=== PATIENT | male | born 1960 | race Caucasian/White ===

== ENCOUNTER 2019-02-08 16:32 | Observation (INO) | payer OTHER ==
[~2019-02-08] VITALS: Ht 182.9 cm; Wt 172.3 kg
--- NOTE | ~2019-02-08 | HEMODYNAMI ---
PATIENT:LATOYA GUERRERO MEDICAL RECORD: [id number] : 60 LOCATION:[facility].2129 ADMISSION DATE: 02/08/19 Generatedon:02/09/201915:56 Patient name: LATOYA GUERRERO Patient #: [id number] SSN: : 1960 Date of study: 02/09/2019 Page: Of Hemodynamic Procedure Report Patient Data Patient Demographics Procedure consent was obtained First Name: LATOYA Gender: Male Last Name: CESAR : 1960 [facility] Initial: PERFECTO Age: 58 year(s) Patient #: [id number] Race: Unknown Additional ID: [id number] Contact details Address: [address] [place] [address] State: [place] City: [facility] Zip code: [address] Admission Admission Data Admission Date: 02/08/2019 Admission Time: 18:46 Room #: D2129 Procedure Procedure Types Cath Procedure Diagnostic Procedure LHC LHC w/Coronaries Procedure Description Procedure Date Procedure Date: 02/09/2019 Procedure Start Time: 15:41 Procedure End Time: 15:53 Procedure Staff Name Function Martínez Jeong MD Performing Physician Jamel Stratton RN Nurse Flores Tobin RT Scrub Lorenzo Pappas RT Monitor America Ragsdale RN Court Messenger Procedure Data Cath Procedure Fluoroscopy Diagnostic fluoroscopy Total fluoroscopy Time: 4.9 time: 4.9 min min Diagnostic fluoroscopy Total fluoroscopy dose: dose: 1217 mGy 1217 mGy Contrast Material Contrast Material Type Amount (ml) Isovue 300 75 Entry Location Entry Primary Successful Side Size Upsize Upsize Entry Closure Nj ccessful Closure Location (Fr) 1 (Fr) 2 (Fr) Remarks Device Remarks Femoral Right 6 Fr Mechanical artery Short Compression Estimated blood loss: 10 ml Diagnostic catheters Device Type Used For End Catheter Placement DIAGNOSTIC Dover 110cm 5 Procedure Fr catheter ([id number]) Procedure Complications No complications Procedure Medications Medication Administration Route Dosage Oxygen etCO2 Nasal cannula 2 l/min Lidocaine 2% added to field 20 Heparin Flush Bag added to field 2 bags (1000units/500ml NS) 0.9% NaCl I.V. 100 ml/hr Radial Cocktail I.A. 1 syringe (Verapomil 2mg/Nitro 400mcg/Heparin 1500units) Versed I.V. 2 mg Fentanyl I.V. 100 mcg Versed I.V. 2 mg Fentanyl I.V. 100 mcg Hemodynamics Rest Heart Rate: 79 (bpm) Pressure Samples Time Site Value (mmHg) Purpose Heart Use Rate(bpm) 15:43 LV 110/4,5 Snapshot 88 Gradients Valve Time Site Site Mean SEP/DFP Peak To Heart Use 1 2 (mmHg) (sec/min) Peak Rate (mmHg) (bpm) Aortic 15:44 LV AO 76 Snapshots Pre Cath Intra NCS Post Cath Vital Signs Time Heart Resp SPO2 etCO2 NIBP (mmHg) Rhythm Pain Sedation Rate (ipm) (%) (mmHg) Status Level (bpm) 15:14:37 81 22 96 27 119/68(98) NSR 0 (11) 10(A) , No pain 15:19:54 80 16 93 34.5 110/68(100) NSR 0 (11) 10(A) , No pain 15:24:14 80 18 93 35.9 115/69(95) NSR 0 (11) 10(A) , No pain 15:28:36 78 18 94 34.4 114/68(86) NSR 0 (11) 10(A) , No pain 15:32:58 79 17 93 37.5 121/70(95) NSR 0 (11) 10(A) , No pain 15:37:23 79 18 93 38.2 118/72(99) NSR 0 (11) 10(A) , No pain 15:41:49 86 16 95 15.7 118/68(88) NSR 0 (11) 9(A) , No pain 15:46:09 89 18 94 24.7 107/64(87) NSR 0 (11) 9(A) , No pain 15:50:29 80 17 93 37.5 116/68(88) NSR 0 (11) 9(A) , No pain 15:54:43 81 19 94 32.9 118/75(97) NSR 0 (11) 10(A) , No pain Medications Time Medication Route Dose Verified Delivered Reason Notes Effectiveness by by 15:19:50 Oxygen etCO2 2 l/min Martínez Mccullough used for Nasal Davin Viral procedure cannula RN 15:19:58 Lidocaine 2% added 20ml Martínez Soliz for local to vial [facility] anesthetic field MD HEART 15:20:32 Heparin Flush added 2 bags Martínez Soliz used for Bag to [facility] procedure (1000units/500ml field MD HEART NS) 15:20:43 0.9% NaCl I.V. 100 Martínez Soliz Per ml/hr [facility] physician MD HEART 15:39:08 Fentanyl I.V. 100 mcg Martínez Cross for sedation [facility] Ragsdale RN, MD 15:39:54 Versed I.V. 2 mg Martínez Cross for sedation [facility] Rags[facility] RN, MD 15:42:31 Radial Cocktail I.A. 1 Martínez Soliz for (Verapomil syringe [facility] vasodilation 2mg/Nitro MD HEART 400mcg/Heparin 1500units) 15:44:37 Versed I.V. 2 mg Martínez Cross for sedation [facility] Justin Ragsdale RN, MD 15:44:42 Fentanyl I.V. 100 mcg Martínez Cross for sedation [facility] Ragsdale RN, MD Procedure Log Time Note 14:45:35 Time tracking: Regular hours (M-F 7:00 - 5:00) 14:45:39 Plan of Care:Hemodynamics will remain stable., Cardiac rhythm will remain stable., Comfort level will be maintained., Respiratory function will remain adequate., Patient/ family verbilizes understanding of procedure., Procedure tolerated without complication., Recovers from procedure without complications.. 14:50:10 Jamel Stratton RN sent for patient. Start room use. 15:05:12 Patient received from PCU to CCL 2 Alert and oriented. Tansferred to table in Supine position. 15:13:18 Warm blankets applied, and rony hugger turned on for patient comfort. 15:13:18 Correct patient and procedure confirmed by team. 15:13:19 Signed procedure consent form obtained from patient. 15:13:20 ECG and BP/O2 sat monitors applied to patient. 15:13:22 Vital chart was started 15:13:22 Full Disclosure recording started 15:13:26 Rhythm: sinus rhythm 15:18:57 Baseline sample Acquired. 15:19:50 Oxygen 2 l/min etCO2 Nasal cannula was administered by Jamel Stratton RN; used for procedure; 15:19:58 Lidocaine 2% 20ml vial added to field was administered by Martínez Jeong MD; for local anesthetic; 15:20:32 Heparin Flush Bag (1000units/500ml NS) 2 bags added to field was administered by Martínez Jeong MD; used for procedure; 15:20:43 0.9% NaCl 100 ml/hr I.V. was administered by Martínez Jeong MD; Per physician; 15:21:33 H&P Date Dictated: 02/09/2019 Within 30 days and on chart.. 15:21:34 Pre-procedure instructions explained to patient. 15:21:34 Pre-op teaching completed and patient verbalized understanding. 15:21:39 Family in patients room. 15:21:40 Patient NPO since Midnight. 15:21:43 Is the patient allergic to Iodine/contrast media? No. 15:21:59 Is patient on blood thinner?No 15:22:00 Patient diabetic? No. 15:22:01 If diabetic: On Metformin? Yes 15:22:04 If on Metformin: Last Dose? 02/07/2019 15:22:08 Previous problem with sedation/anesthesia? No ? 15:22:09 Snore? Yes 15:22:10 Sleep apnea? Yes 15:22:11 Deviated septum? No 15:22:12 Opens mouth fully? Yes 15:22:15 Sticks out tongue? Yes 15:22:21 Airway obstruction? No ? 15:22:32 Dentures? Yes IN 15:22:47 Pre procedure: right dorsailis pedis pulse 1+ Palpable, but thready & weak; easily obliterated 15:22:51 Modified Manuel's test Ulnar < 7 seconds 15:22:53 Patient pain scale 0/10 ?. 15:22:58 IV patent on arrival in left forearm with 0.9% NaCl at [facility]. 15:23:00 Lab results completed and on chart. 15:23:03 Right Radial & Right Groin area was prepped with chlora-prep and draped in sterile fashion 15:23:04 Alarms reviewed by Roge N. 15:23:05 Sharps counted by scrub and verified by RRichieNRichie 15:38:26 --------ALL STOP TIME OUT------ 15:38:27 Final Timeout: patient, procedure, and site verified with staff and physician. All members of the team are in agreement. 15:38:29 Right Radial & Right Groin site verified by team. 15:38:32 Maximum allowable Isovue 300 dose 300ml. Physician notified. (300ml for normal creatinines. For patients with creatinine of 1.7 or higher multiply weight(kg) x 5 divided by creatinine.) 15:38:36 Fire Safety Assessment: A--An alcohol-based skin anteseptic being used preoperatively., C--Open oxygen or nitrous oxide is being used., D--An ESU, laser, or fiber-optic light is being used. 15:38:39 Physical assessment completed. ASA score P 2 - A patient with mild systemic disease as per Martínez Jeong MD. 15:38:42 Sedation plan: IV Moderate Sedation Medication:Versed, Fentanyl 15:39:08 Fentanyl 100 mcg I.V. was administered by America Ragsdale RN; for sedation; 15:39:54 Versed 2 mg I.V. was administered by America Ragsdale RN; for sedation; 15:40:47 Use device set Radial Dx or PCI 15:40:48 Tegaderm 4 x 4 (1626W) opened to sterile field. 15:40:49 ACIST Manifold (36732) opened to sterile field. 15:40:50 ACIST Hand Control (67310) opened to sterile field. 15:40:51 ACIST Syringe (67396) opened to sterile field. 15:40:51 Medline Cath Pack ([id number]) opened to sterile field. 15:40:52 Bag Decanter () opened to sterile field. 15:40:52 DIAGNOSTIC WIRE .035 260cm J wire (833101) opened to sterile field. 15:40:53 MBrace Wrist Support ([id number]) opened to sterile field. 15:40:54 SHEATH 6FR Slender (02-9950) opened to sterile field. 15:40:57 Procedure started. 15:41:02 Local anesthetic to right radial artery with Lidocaine 2% by Martínez Jeong MD.INITIAL ACCESS ONLY 15:41:55 A 6 Fr Short sheath was inserted into the Right Femoral artery 15:42:02 A DIAGNOSTIC Dover 110cm 5 Fr catheter (110583) was advanced over the wire and used for Procedure. 15:42:31 Radial Cocktail (Verapomil 2mg/Nitro 400mcg/Heparin 1500units) 1 syringe I.A. was administered by Martínez Jeong MD; for vasodilation; 15:43:58 LV angiography performed. 15:43:59 LV gram done using HONEYCUTT 15:44:04 EF : 55 % 15:44:06 LV hemodynamics recorded. 15:44:09 Injector settings: Ml/sec: 5, Volume: 15, 15:44:28 RCA angiography performed. 15:44:37 Versed 2 mg I.V. was administered by America Ragsdale RN; for sedation; 15:44:42 Fentanyl 100 mcg I.V. was administered by America Ragsdale RN; for sedation; 15:46:19 Catheter exchanged over wire. 15:46:[address] [facility]OWN PCI 15:46:40 GUIDE 6FR EBU 3.5 catheter ([id number]) opened to sterile field. 15:47:00 6 Fr EBU 3.5 guide catheter was inserted over the wire 15:48:13 Guide Catheter removed. unable to cannulate vessel. 15:48:16 GUIDE 6FR EBU 4.0 guide catheter ([id number]) opened to sterile field. 15:48:22 6 Fr EBU 4 guide catheter was inserted over the wire 15:51:08 LCA angiography performed. 15:51:26 Catheter removed. 15:51:45 TR BAND Large ([id number]) opened to sterile field. 15:52:08 Sheath removed intact; hemostasis achieved with Mechanical Compression to the Right Femoral artery. 15:52:10 Procedure ended.(Physican Out) 15:52:30 Fluoroscopy time 04.90 minutes. 15:52:33 Fluoroscopy dose: 1217 mGy 15:52:33 Flurop Dose total: 1217 15:52:38 Contrast amount:Isovue 300 75ml. 15:52:39 Sharps counted by scrub and verified by R.N. 15:52:41 TR band inflated with 12cc of air. 15:52:42 Insertion/operative site no bleeding no hematoma. 15:52:44 Post Procedure Pulses reassessed and unchanged 15:52:47 Post-procedure physical assessment completed. ASA score P 2 - A patient with mild systemic disease as per Martínez Jeong MD. 15:52:49 Post procedure rhythm: unchanged. 15:52:52 Estimated blood loss: 10 ml 15:52:54 Post procedure instruction explained to patient.Patient verbalizes understanding. 15:52:54 Patient needs reinforcement of post procedure teaching. 15:53:01 Procedure and supply charges have been captured, reviewed, submitted and are correct. 15:53:03 Procedure Complication : No complications 15:53:43 Vital chart was stopped 15:53:43 See physician's report for complete and final results. 15:53:45 Report given to PCU. 15:53:57 Patient transfered to PCU with Bed. 15:53:59 Procedure ended. 15:53:59 Full Disclosure recording stopped 15:56:10 End room use (Document Last) Device Usage Item Name Manufacture Quantity Catalog Hospital Part Current Minimal Lot# / Number Charge Number Stock Stock Serial# Code Tegaderm 4 3M 1 1626W [id number] 825775 848136 5 x 4 (1626W) ACIST Acist 1 62261 393769 588614 841528 5 Manifold Medical (98395) Systems Inc ACIST Hand Acist 1 28009 195476 992571 006761 5 Control Medical (59368) Systems Inc ACIST Acist 1 87889 279296 847569 845825 20 Syringe Medical (23647) Systems Inc Medline Medline 1 [id number] 562117 97470 735186 5 Cath Pack ([id number]) Bag Microtek 1 2001S 304683 08144 802739 5 Decanter Medical Inc. (2001S) DIAGNOSTIC St Dilshad 1 734840 343266 756031 739180 30 WIRE .035 260cm J wire (709569) MBrace Advanced 1 140-0250-00 638614 43071 953330 5 Wrist Vascular Support Dynamics ([id number]) SHEATH 6FR Terumo 1 [id number] 770941 407268 035133 5 Slender (801060) DIAGNOSTIC Terumo 1 40-8853 719655 445941 776234 5 Dover 110cm 5 Fr catheter (285036) GUIDE 6FR Medtronic 1 [id number] 746915 42636 137444 3 EBU 3.5 catheter (DN9VMV90) GUIDE 6FR Medtronic 1 [id number] 712870 65762 126366 1 EBU 4.0 guide catheter ([id number]) TR BAND Terumo 1 [id number] 232531 379411 837438 40 Large ([id number]) Signature Audit [place] Stage Time Signature Unsigned Intra-Procedure 02/09/2019 Lorenzo Pappas 3:56:26 PM RT(R) Signatures Monitor : Lorenzo Pappas RT Signature : Date : Time : [id number] [place] [address]
[2019-02-08 17:00] VITALS: BP 135/87
[2019-02-08 17:21] LABS: APTT 26.6 SECONDS (22.8-39.4); INR 1.09 (0.85-1.17); PROTIME 13.6 SECONDS (11.6-15.0)
[2019-02-08 17:24] LABS: HEMATOCRIT 42.3 % (42.0-54.0); HEMOGLOBIN 14.9 g/dL (13.5-17.5); MCH 31.8 pg (26.0-34.0); MCHC 35.2 g/dL (31.0-37.0); MCV 90.4 fL (80.0-100.0); MEAN PLATELET VOLUME 11.4 fL (7.4-10.4); PLATELET COUNT 156 10x3/uL (130-400); RBC 4.68 10x6/uL (4.20-6.10); RDW 12.6 % (11.5-14.5); WBC 10.8 10x3/uL (4.8-10.8)
[2019-02-08 17:30] LABS: ALBUMIN 3.2 g/dL (3.4-5.0); ALKALINE PHOSPHATASE 88 U/L (46-116); ALT (SGPT) 37 U/L (10-68); BILIRUBIN - TOTAL 0.37 mg/dL (0.2-1.3); CALC OSMOLALITY 277 mosm/kg (275-300); CALCIUM 8.5 mg/dL (8.5-10.1); CARBON DIOXIDE 23.9 mmol/L (21.0-32.0); CHLORIDE - SERUM 104 mmol/L (98-107); CREATININE - SERUM 0.9 mg/dL (0.6-1.3); POTASSIUM - SERUM 3.6 mmol/L (3.5-5.1); PROTEIN - SERUM 8.1 g/dL (6.4-8.2); SODIUM 137 mmol/L (136-145); UREA NITROGEN 18 mg/dL (7-18); eGFR NON AFRICAN AMERICAN > 90 mL/min (90-120)
[2019-02-08 17:31] LABS: GLUCOSE 135 mg/dL (74-106)
[2019-02-08 17:41] LABS: CKMB 0.8 U/L (0.0-3.6); CREATINE KINASE 102 UL (21-232); MAGNESIUM - SERUM 1.8 mg/dL (1.8-2.4); PRO BNP 22 pg/mL (0-125)
[2019-02-08 17:46] LABS: TROPONIN-I < 0.017 ng/mL (0.000-0.060)
[2019-02-08 18:03] LABS: EOSINOPHILS 1 % (0-7); LYMPHOCYTES 55 % (15-50); MONOCYTES 1 % (2-11); NEUTROPHILS 43 % (40-80)
[2019-02-08 18:04] LABS: PLATELET ESTIMATE NORMAL
[2019-02-08 19:00] VITALS: BP 118/71
[2019-02-08 20:00] VITALS: BP 127/87
[2019-02-08] MEDS ORDERED: BAYER CHEWABLE81 MG PO (23:35)
[2019-02-08] MEDS ORDERED: LIPITOR40 MG PO (23:36)
[2019-02-08] MEDS ORDERED: GLUCOTROL 5 MG T5 MG PO (23:39)
[2019-02-08] MEDS ORDERED: GLUCOPHAGE850 MG PO (23:40)
[2019-02-08] MEDS ORDERED: SALAGEN5 MG PO (23:41)
[2019-02-08] MEDS ORDERED: EFFEXOR XR75 MG PO (23:42)
[2019-02-09] VITALS: BP 135/70
[2019-02-09 00:48] LABS: CKMB 0.7 U/L (0.0-3.6); CREATINE KINASE 90 UL (21-232)
[2019-02-09 00:49] LABS: TROPONIN-I < 0.017 ng/mL (0.000-0.060)
[2019-02-09 03:07] VITALS: BP 135/70; BMI 52.3
[2019-02-09 04:00] VITALS: BP 128/81
[2019-02-09 06:14] LABS: CKMB 0.7 U/L (0.0-3.6); CREATINE KINASE 82 UL (21-232); TROPONIN-I < 0.017 ng/mL (0.000-0.060)
[2019-02-09 08:57] VITALS: BP 107/66
[2019-02-09 09:00] LABS: ALKALINE PHOSPHATASE 72 U/L (46-116); ALT (SGPT) 38 U/L (10-68); BILIRUBIN - TOTAL 0.39 mg/dL (0.2-1.3); CALC OSMOLALITY 285 mosm/kg (275-300); CALCIUM 8.7 mg/dL (8.5-10.1); CARBON DIOXIDE 24.3 mmol/L (21.0-32.0); CHLORIDE - SERUM 105 mmol/L (98-107); CREATININE - SERUM 0.9 mg/dL (0.6-1.3); GLUCOSE 165 mg/dL (74-106); MAGNESIUM - SERUM 1.9 mg/dL (1.8-2.4); PROTEIN - SERUM 7.4 g/dL (6.4-8.2); SODIUM 140 mmol/L (136-145); UREA NITROGEN 21 mg/dL (7-18); eGFR NON AFRICAN AMERICAN > 90 mL/min (90-120)
[2019-02-09 09:37] LABS: BASOPHILS 0.2 % (0-2); EOSINOPHILS 1.1 % (0-7); HEMATOCRIT 39.3 % (42.0-54.0); HEMOGLOBIN 13.6 g/dL (13.5-17.5); IMMATURE GRANULOCYTES 0.4 % (0-5); LYMPHOCYTES 57.1 % (15-50); MCH 31.4 pg (26.0-34.0); MCHC 34.6 g/dL (31.0-37.0); MCV 90.8 fL (80.0-100.0); MEAN PLATELET VOLUME 12.4 fL (7.4-10.4); MONOCYTES 7.9 % (2-11); NEUTROPHILS 33.3 % (40-80); PLATELET COUNT 144 10x3/uL (130-400); RBC 4.33 10x6/uL (4.20-6.10); RDW 12.9 % (11.5-14.5); WBC 8.5 10x3/uL (4.8-10.8)
[2019-02-09 11:59] VITALS: BP 124/62
[2019-02-09 13:35] VITALS: BMI 51.9
[2019-02-09 13:37] LABS: CKMB 0.5 U/L (0.0-3.6); CREATINE KINASE 87 UL (21-232)
[2019-02-09 13:38] LABS: TROPONIN-I < 0.017 ng/mL (0.000-0.060)
[2019-02-09 15:55] VITALS: Ht 182.9 cm; Wt 172.3 kg
[2019-02-09 20:00] VITALS: BP 107/68
[2019-02-10 00:30] VITALS: BP 135/75
[2019-02-10 05:00] VITALS: BP 139/79
[2019-02-10 05:01] LABS: BASOPHILS 0.3 % (0-2); EOSINOPHILS 1.2 % (0-7); HEMATOCRIT 39.5 % (42.0-54.0); HEMOGLOBIN 13.5 g/dL (13.5-17.5); IMMATURE GRANULOCYTES 0.3 % (0-5); LYMPHOCYTES 46.3 % (15-50); MCHC 34.2 g/dL (31.0-37.0); MCV 90.6 fL (80.0-100.0); MEAN PLATELET VOLUME 11.3 fL (7.4-10.4); NEUTROPHILS 43.9 % (40-80); PLATELET COUNT 148 10x3/uL (130-400); RBC 4.36 10x6/uL (4.20-6.10); RDW 12.8 % (11.5-14.5); WBC 7.6 10x3/uL (4.8-10.8)
[2019-02-10 05:24] LABS: CALC OSMOLALITY 280 mosm/kg (275-300); CALCIUM 8.4 mg/dL (8.5-10.1); CARBON DIOXIDE 25.1 mmol/L (21.0-32.0); CHLORIDE - SERUM 106 mmol/L (98-107); CHOL - HDL RATIO 3.1 ratio (2.3-4.9); CHOLESTEROL, TOTAL 95 mg/dL (0-200); CREATININE - SERUM 0.8 mg/dL (0.6-1.3); GLUCOSE 119 mg/dL (74-106); HDL CHOLESTEROL 31 mg/dL (32-96); LDL CHOLESTEROL 43 mg/dL (0-100); LDL-HDL RATIO 1.4 ratio (1.5-3.5); SODIUM 139 mmol/L (136-145); TRIGLYCERIDE 105 mg/dL (30-200); UREA NITROGEN 18 mg/dL (7-18); eGFR NON AFRICAN AMERICAN > 90 mL/min (90-120)
[2019-02-10 08:39] VITALS: BP 114/71
--- NOTE | 2019-02-10 13:33 | OP ---
PATIENT NAME: LATOYA GUERRERO MEDICAL RECORD: [id number] :60 LOCATION:D.M2 D.2129 ADMISSION DATE:02/08/19 SURGEON: TONY CALDERON MD DATE OF OPERATION: 02/09/2019 PROCEDURE: Left heart catheterization, selective coronary angiography, and right radial approach. CATHETERS: Midway catheter, radial sheath. The procedure was well tolerated. The patient returned to the richards. Sheath was removed. TR band was placed. FINDINGS: Left ventriculography in 30-degree HONEYCUTT view: Normal wall motion. Normal systolic function. CORONARY ANATOMY: LEFT MAIN: Left main is free of disease. LAD: Free of disease in the diagonal system. CIRCUMFLEX: Free of disease in the marginal system. RIGHT CORONARY ARTERY: Dominant artery, gives rise to PDA, free of disease. IMPRESSION: Normal left ventricular systolic function. Normal coronary anatomy. TRANSINT:[id number] Voice Confirmation ID: [id number] DOCUMENT ID: [id number] TONY CALDERON MD at 1333 CC: [id number] DICTATION DATE: 02/09/19 1651 MANAGER SHIPPING: 02/09/19 2208 DIS IN 02/10/19 [facility] [address] [place] [address]
--- NOTE | 2019-02-10 13:33 | CN ---
PATIENT NAME:LATOYA GUERRERO MEDICAL RECORD: [id number] : 60 LOCATION:D. D.2129 ADMIT DATE: 02/08/19 ACCOUNT: [id number] CONSULTING PHYSICIAN: TONY CALDERON MD REFERRING PHYSICIAN: DAT HERNANDEZ MD DATE OF CONSULTATION: 02/09/2019 HISTORY OF PRESENT ILLNESS: A 58-year-old gentleman with no known history of coronary artery disease, has a history of morbid obesity, obstructive sleep apnea, dyslipidemia, admitted with chest tightness and pressure, abnormal ECG. Currently, he has most recent nausea with minimal exertion. We are asked to see him concerning his cardiovascular status. PAST MEDICAL HISTORY: Includes; 1. History of diabetes mellitus. 2. Dyslipidemia. 3. Obstructive sleep apnea. ALLERGIES: None known. MEDICATIONS: Include Salagen 2 mg t.i.d., atorvastatin 40 every day, Effexor 75 every day, Glucotrol 5 b.i.d., Glucophage 850 b.i.d. SOCIAL HISTORY: He is a nonsmoker, social drinker. REVIEW OF SYSTEMS: The patient reports easy bruising but reports no swollen glands. The patient reports no fever, no night sweats, no significant weight gain, no significant weight loss. No significant exercise tolerance. The patient reports no dry eyes, no irritation, no vision change. Patient reports no difficulty hearing and no ear pain. Patient reports no frequent nose bleeds or nose and sinus problems. Patient reports on arm pain on exertion. No shortness of breath while lying down. No history of heart murmur. Patient reports no cough, no wheezing or coughing up blood. Patient reports no abdominal pain, no vomiting. Normal appetite. No diarrhea and not vomiting blood. No nausea and no constipation. Patient reports no incontinence. No difficulty urinating. No hematuria. No increased frequency. Patient reports no muscle aches. No weakness, no arthralgias, no back pain. No swelling of the extremities. Patient reports no abnormal mole, no jaundice, no rashes. Reports no loss of consciousness. No weakness and no numbness. No seizures, dizziness, or headaches. The patient reports no depression, no sleep disturbance, feeling safe in a relationship and no alcohol abuse. Patient reports on fatigue. Reports no runny nose or sinus pressure. No itching, no hives, and no frequent sneezing. PHYSICAL EXAMINATION: GENERAL: Pleasant gentleman in no acute distress. VITAL SIGNS: Blood pressure 120/81, pulse 102, occasional PVC. HEENT: Normocephalic, atraumatic. NECK: No JVD or bruit. HEART: Regular. Heart tones are distant. LUNGS: Fairly good air excursion. ABDOMEN: Soft, nontender. EXTREMITIES: Pulses are 1+ with 1+ edema. NEUROLOGIC: Grossly intact. CONSULT REPORT [id number] LATOYA GUERRERO DIAGNOSTIC DATA: ECG shows minor nonspecific ST-T changes, occasional PVC. IMPRESSION: Acute coronary syndrome, multiple risk factors. PLAN: For angiography, intervention based on above. TRANSINT:[id number] Voice Confirmation ID: [id number] DOCUMENT ID: [id number] TONY CALDERON MD at 1333 CC: [id number] DICTATION DATE: 02/09/19 0840 INSULATOR CUTTER AND FORMER: 02/09/19 0924 DIS IN 02/10/19 [address] [place] [address]
--- NOTE | 2019-02-11 08:37 | MORECARE ---
CASE MANAGEMENT DISCHARGE SUMMARY PATIENT: LATOYA GUERRERO UNIT: [id number] ADM DATE: 02/08/19 AGE: 58 : 60 SEX: M ROOM/BED: D.2129 AUTHOR: EVANS CIFUENTES PHYSICIAN: REFERRING PHYSICIAN: DAT HERNANDEZ MD DATE OF SERVICE: 02/11/19 Discharge Plan Patient Name: LATOYA GUERRERO [facility] [facility] 1960 Planned Disposition: Home Anticipated Discharge Date: 02/10/19 Discharge Date: 02/10/2019 Expected LOS: 2 Initial Reviewer: [email or web address] Initial Review Date: 02/11/2019 Generated: 02/11/19 9:37 am Coverage Notice Reviewer: [email or web address] Franc Monzon Notice Issued Date-Time: 02/09/2019 12:16 Notice Type: Medicare Outpatient Observation Notice Notice Delivered To: Patient Relationship to Patient: Vending Route Driver Name: Delivery Method: HAND - Hand Delivered Simin Days: Prior Verbal Notification: Recipient Understood Notice: Yes Recipient Signature: Yes Med Rec Note Co-signed by Attending: Coverage Notice Comment: Patient Name: LATOYA GUERRERO Page [phone] at 0837 All edits/amendments must be made on the electronic document DICTATION DATE: 02/11/19835 PAST DUE ACCOUNTS CLERK: JOSY 02/11/19 0836 RPT#: [id number] DC DATE:02/10/19 STATUS: DIS IN [facility] [address] [place] [address] END OF REPORT
== END 2019-02-10 11:14 | disposition home or self-care (01) ==
LOC: D.ER 16:32 → D.EDHOLD 18:46 → D.M2 18:46 → OBSVTIME 19:03 → D.M2 20:06
PROVIDERS: Family Medicine; Internal Medicine Interventional Cardiology; ADMIT Internal Medicine Nephrology; ATTEND Internal Medicine Nephrology
DX: I24.9 Acute ischemic heart disease, unspecified (principal); N17.9 Acute kidney failure, unspecified; E78.5 Hyperlipidemia, unspecified; E11.9 Type 2 diabetes mellitus without complications; G47.33 Obstructive sleep apnea (adult) (pediatric); E66.01 Morbid (severe) obesity due to excess calories; Z68.43 Body mass index [BMI] 50.0-59.9, adult; R51 Headache